=== PATIENT | female | born 1935 | race Caucasian/White ===

== ENCOUNTER 2018-12-24 06:08 | Emergency (ER) | payer MEDICARE, OTHER ==
[~2018-12-24] VITALS: Ht 165.1 cm; Wt 75.9 kg
[2018-12-24 06:39] LABS: BASO # 0.1 10^3/uL (0.0-0.2); BASO % 0.7 % (0.0-1.0); EOS # 0.3 10^3/uL (0.0-0.50); EOS % 3.9 % (0.0-3.0); HEMATOCRIT 37.7 % (36.0-47.0); HEMOGLOBIN 12.1 g/dl (12.0-15.5); LYMPH % 40.2 % (24.0-44.0); MEAN CORPUSCULAR HEMOGLOBIN 29.7 pg (27.0-33.0); MEAN CORPUSCULAR HGB CONC 32.1 g/dl (32.0-36.5); MEAN CORPUSCULAR VOLUME 92.6 fl (80.0-96.0); MONO # 0.8 10^3/uL (0.0-0.8); MONO % 10.5 % (0.0-5.0); NEUTROPHILS # 3.3 10^3/uL (1.8-7.7); NEUTROPHILS % 44.4 % (36.0-66.0); PLATELET COUNT, AUTOMATED 377 10^3/uL (150-450); RED BLOOD COUNT 4.07 10^6/uL (4.00-5.40); WHITE BLOOD COUNT 7.4 10^3/uL (4.0-10.0)
[2018-12-24 07:05] LABS: ALBUMIN 3.6 GM/DL (3.2-5.2); ALT/SGPT 16 U/L (12-78); BILIRUBIN,DIRECT 0.1 MG/DL (0.0-0.2); BILIRUBIN,TOTAL 0.3 MG/DL (0.2-1.0); BLOOD UREA NITROGEN 29 MG/DL (7-18); CALCIUM LEVEL 8.9 MG/DL (8.8-10.2); CARBON DIOXIDE LEVEL 23 MEQ/L (21-32); CHLORIDE LEVEL 109 MEQ/L (98-107); CK-MB VALUE MASS 1.6 NG/ML (<3.6); CPK CREATINE PHOSPHOKINASE 55 U/L (26-192); CREATININE FOR GFR 1.07 MG/DL (0.55-1.30); GLUCOSE, FASTING 101 MG/DL (70-100); LIPASE 380 U/L (73-393); MB/CK RELATIVE INDEX 2.91 (< OR =4); POTASSIUM SERUM 4.2 MEQ/L (3.5-5.1); SODIUM LEVEL 141 MEQ/L (136-145); TOTAL PROTEIN 7.6 GM/DL (6.4-8.2); TROPONIN I < 0.02 NG/ML (< 0.10)
[2018-12-24] MEDS ORDERED: LEVO100T5 PO (07:54)
[2018-12-24] MEDS ORDERED: OLME1TAB15 PO (07:54)
[2018-12-24] MEDS ORDERED: AMLO10TA5 PO (07:54)
[2018-12-24] MEDS ORDERED: GEMF600T5 PO (07:54)
[2018-12-24] MEDS ORDERED: hydroCHLOROthiazide 25 MG TAB PO ONE (08:00)
[2018-12-24] MEDS ORDERED: KETOROLAC 30 MG/ML VIAL (J1885) IV ONE (08:00)
[2018-12-24] MEDS ORDERED: OLMESARTAN MEDOXOMIL 20 MG TAB (BENICAR) PO ONE (08:00)
[2018-12-24] MEDS ORDERED: amLODIPine 10 MG TAB PO ONE (08:00)
[2018-12-24] MEDS: MORPHINE 2 MG/ML 1ML SYRINGE (J2270) IV PRN ×2 (08:44→09:48)
[2018-12-24] MEDS ORDERED: ONDANSETRON 4MG/2ML VIAL (J2405) IV ONE (08:45)
[2018-12-24 09:47] VITALS: BP 179/73
--- NOTE | 2018-12-24 10:12 | REP ---
Clinical: Right upper quadrant pain. Technique: Real time zelaya scale and color ultrasound examination using curved array transducer. Findings: The gallbladder is markedly distended measuring 11 cm in length and 5.3 cm diameter without wall thickening, pericholecystic fluid, or cholelithiasis. No definite biliary ductal dilatation is appreciated and the common bile duct is upper limits of normal at 8 mm diameter. Liver and visualized pancreas are normal in contour, size, echogenicity without focal hepatic or pancreatic lesions identified. The right kidney is normal in reniform shape without hydronephrosis and measures 9.5 x 4.4 x 4.4 cm. Images demonstrate a 2.2 x 1.8 x 1.6 cm soft tissue focus superior to the right kidney which is has been previously diagnosed as adenoma. No ascites. Impression: 1. Markedly distended gallbladder without further sonographic evidence to suggest acute cholecystitis, and prominent common bile duct. Findings are similar to prior CT dated 10/18/2008. 2. Right adrenal lesion consistent with adenoma and confirmed by CT dated 10/08/2008. Electronically Signed by Pedro Galarza MD 12/24/2018 10:03 A
[2018-12-24] MEDS: GASTROGRAFIN SOLUTION 30ML (Q9963) PO SCH ×2 (10:46→11:28)
[2018-12-24] MEDS ORDERED: ISOVUE-370 76% 100ML VIAL (Q9967) As Ordered ONE (12:05)
--- NOTE | 2018-12-24 12:39 | REP ---
Clinical: Right-sided abdominal pain. Technique: Axial contrast enhanced images from the lung bases to the pubic symphysis using oral (per protocol) and 100 ml Isovue 370 intravenous contrast material with coronal and sagittal re-formations. Comparison: 10/18/2008 Findings: Lung bases demonstrate chronic changes and bronchiectasis. Liver, pancreas, and left adrenal gland are normal. Spleen demonstrates parenchymal calcifications suggesting prior granulomas disease. Right adrenal gland includes 2.6 cm benign adenoma. Kidneys demonstrate age-related atrophic changes without perinephric stranding or hydronephrosis. The gallbladder is distended but without surrounding pericholecystic fluid to suggest acute cholecystitis. The enteric system demonstrates moderate fecal stasis without obstruction or acute inflammatory process. Normal terminal ileum and appendix identified in the right lower quadrant. Sigmoid diverticulosis noted without acute diverticulitis. Pelvis demonstrates normal bladder and prominent uterus with possible fundal fibroid. No ascites. No free air. No adenopathy. Abdominal aorta without aneurysm or dissection. Musculoskeletal structures demonstrate osteopenia and advanced degenerative changes. Impression: 1. No acute abdominopelvic pathology appreciated. Specifically, no ascites, focal inflammatory stranding, or adenopathy. 2. Distended gallbladder without obvious findings to suggest acute cholecystitis. 3. Diverticulosis. 4. Benign right adrenal adenoma. 5. Possible fundal fibroid to the uterus. Electronically Signed by Pedro Galarza MD 12/24/2018 12:30 P
[2018-12-24] MEDS ORDERED: TRAM-533 PO (14:21)
[2018-12-24 14:32] VITALS: BP 137/63
--- NOTE | 2018-12-25 10:27 | ECGEPIP ---
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
== END 2018-12-24 14:58 | disposition home or self-care (01) ==
LOC: M ED 06:08
DX: R10.11 Right upper quadrant pain (principal); K82.8 Other specified diseases of gallbladder; I10 Essential (primary) hypertension; E78.5 Hyperlipidemia, unspecified; M51.9 Unspecified thoracic, thoracolumbar and lumbosacral intervertebral disc disorder; K57.90 Diverticulosis of intestine, part unspecified, without perforation or abscess without bleeding; Z88.8 Allergy status to other drugs, medicaments and biological substances; Z79.899 Other long term (current) drug therapy
CPT/HCPCS: 74177; 76705; 80048; 80076; 81001; 82550; 82553; 83690; 84484; 85025; 87086; 93005; 93041; 96374; 96375; 96376; 99285; J1885; J2270; J2405; Q9963; Q9967

== ENCOUNTER → 2019-01-02 | Outpatient (CLI) | payer MEDICARE, OTHER ==
[~2019-01-02] MED LIST: AMLO10TA5 PO; ASPI81TA26 PO; FISH1000 PO; GEMF600T5 PO; LEVO100T5 PO; MULTCAP PO; OLME1TAB47 PO; TRAM-533 PO; TUMERIC PO; TYLE650T35 PO
--- NOTE | 2019-01-02 14:29 | REP ---
Hepatobiliary scan and gallbladder ejection fraction: History: Right upper quadrant pain Technique: 6.6 mCi of technetium-99m mebrofenin was injected and sequential anterior images are acquired. 65 minutes after the mebrofenin injection, the patient consumed 8 ounces Ensure and an additional 60 minutes of imaging was acquired. Regions of interest are plotted around the gallbladder. Findings: The initial hepatocellular parenchymal uptake phase is normal and homogeneous. Intra- and extra-hepatic bile ducts and duodenum are labeled by the 25 -minute image. The gallbladder is first labeled on the 30 -minute image. There is normal washout from the liver parenchyma into the gallbladder and small intestine on subsequent images. The gallbladder ejection fraction is 18 %. Values greater than 35 % are considered normal with this technique. Impression: Normal hepatobiliary scan with decreased gallbladder ejection fraction. Electronically Signed by Rustam Jaramillo MD 01/02/2019 02:21 P
== END ==
LOC: M RAD 07:00
PROVIDERS: ATTEND Nurse Practitioner Family
DX: R10.11 Right upper quadrant pain (principal)
CPT/HCPCS: 78227; A9537; J2805

== ENCOUNTER → 2019-04-13 | Outpatient (CLI) | payer MEDICARE, OTHER ==
[~2019-04-13] MED LIST changes: +OLME1TAB15 PO; -OLME1TAB47 PO
[2019-04-13 15:57] LABS: BASO # 0.1 10^3/uL (0.0-0.2); BASO % 0.6 % (0.0-1.0); EOS # 0.3 10^3/uL (0.0-0.5); EOS % 3.9 % (0.0-3.0); HEMATOCRIT 37.1 % (36.0-47.0); HEMOGLOBIN 11.9 g/dl (12.0-15.5); LYMPH # 3.4 10^3/uL (1.5-5.0); LYMPH % 40.5 % (24.0-44.0); MEAN CORPUSCULAR HGB CONC 32.1 g/dl (32.0-36.5); MEAN CORPUSCULAR VOLUME 93.5 fl (80.0-96.0); MONO # 0.8 10^3/uL (0.0-0.8); MONO % 9.7 % (0.0-5.0); NEUTROPHILS # 3.7 10^3/uL (1.5-8.5); NEUTROPHILS % 45.2 % (36.0-66.0); PLATELET COUNT, AUTOMATED 443 10^3/uL (150-450); RED BLOOD COUNT 3.97 10^6/uL (4.00-5.40); WHITE BLOOD COUNT 8.3 10^3/uL (4.0-10.0)
[2019-04-13 16:09] LABS: INR 1.27; PROTHROMBIN TIME 15.6 SECONDS (11.8-14.0)
[2019-04-13 16:32] LABS: ALBUMIN 3.6 GM/DL (3.2-5.2); BILIRUBIN,TOTAL 0.4 MG/DL (0.2-1.0); GLOMERULAR FILTRATION RATE 56.2 (>32); POTASSIUM SERUM 4.4 MEQ/L (3.5-5.1); THYROID STIMULATING HORMONE 1.33 uIU/ML (0.358-3.740); TOTAL PROTEIN 7.2 GM/DL (6.4-8.2)
--- NOTE | 2019-04-13 18:43 | ECGEPIP ---
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 No significant change from 12/24/18 Electronically Signed on 04-13-2019 18:42:52 EDT by Abdiel Marrero
== END ==
LOC: M LAB 15:13
PROVIDERS: ATTEND Nurse Practitioner Adult Health
DX: Z01.818 Encounter for other preprocedural examination (principal); I45.10 Unspecified right bundle-branch block; Z79.82 Long term (current) use of aspirin

== ENCOUNTER 2019-04-20 09:39 | Day surgery (SDC) | payer MEDICARE, OTHER ==
[~2019-04-20] VITALS: Ht 165.1 cm; Wt 68.0 kg
[~2019-04-20 09:39] MED LIST changes: +LR 1,000 ML IV ONE
[2019-04-20] MEDS ORDERED: fentaNYL 250 MCG/5 ML INJECTION (J3010) As Ordered ONE (10:00)
[2019-04-20] MEDS ORDERED: LIDOCAINE 2% INJ 100 MG/5 ML SDV (FOR ANES.) As Ordered ONE (10:00)
[2019-04-20] MEDS ORDERED: PROPOFOL 200 MG/20 ML VIAL As Ordered ONE (10:00)
[2019-04-20] MEDS ORDERED: ROCURONIUM BROMIDE 50 MG/5 ML VIAL As Ordered ONE (10:00)
[2019-04-20] MEDS ORDERED: MIDAZOLAM INJ 2 MG/2 ML VIAL (J2250) As Ordered ONE (10:01)
[2019-04-20] MEDS ORDERED: BUPIVACAINE/EPIN 0.25% 30 ML VIAL As Ordered ONE (10:27)
[2019-04-20] MEDS ORDERED: PHENYLephrine HCL 500 MCG/5 ML (100MCG/ML) SYRINGE (J2370) As Ordered ONE (11:17)
[2019-04-20] MEDS ORDERED: ePHEDrine SULFATE 25 MG/5 ML(5MG/ML) SYRINGE As Ordered ONE (11:17)
[2019-04-20] MEDS ORDERED: KETOROLAC 60 MG/2 ML VIAL (J1885) As Ordered ONE (11:28)
[2019-04-20] MEDS ORDERED: ONDANSETRON 4MG/2ML VIAL (J2405) As Ordered ONE (11:28)
[2019-04-20] MEDS ORDERED: dexameTHASONE 4 MG/ML 1ML VIAL (J1100) As Ordered ONE (11:28)
[2019-04-20] MEDS ORDERED: ACETAMINOPHEN 1000MG 100ML IV BTL (OFIRMEV) (J0131 PER 10MG) As Ordered ONE (11:29)
[2019-04-20] MEDS ORDERED: SUGAMMADEX SODIUM 500 MG/5 ML VIAL (BRIDION) As Ordered ONE (11:32)
--- NOTE | 2019-04-20 12:19 | RO ---
DATE OF PROCEDURE: 04/20/2019 PREOPERATIVE DIAGNOSIS: Biliary dyskinesia. POSTOPERATIVE DIAGNOSIS: Biliary dyskinesia. PROCEDURE: Laparoscopic cholecystectomy. SURGEON: Dr. Paulino Solis COPY MESSENGER: None. ANESTHESIA: General. ESTIMATED BLOOD LOSS: 5. COMPLICATIONS: None. INDICATIONS FOR PROCEDURE: The patient is an 83-year-old female who presents with right upper quadrant pain and found have biliary dyskinesia. Recommendation was to proceed with laparoscopic repair. Risks and benefits of the procedure not limited to, but including bleeding, infection, hernia formation, damage to surrounding structures, need for further surgery were discussed in detail with the patient. Informed consent was obtained and the procedure was planned. DESCRIPTION OF PROCEDURE: The patient was brought back to operating room three and after sufficient sedation the abdomen was sterilely prepped and draped. Next a time out was done to confirm proper patient and proper procedure. Following that, a 10 mm incision was made in the left upper quadrant. Veress needle was inserted and the abdomen was insufflated to 15 mmHg. Next, a 5 mm supraumbilical incision made and a 5 mm OptiVu port was used to gain access to the abdomen. Once the abdomen was entered, the Veress needle site was examined. There were no signs of any injury. The Veress needle was then removed and replaced with a 10 mm port. Two more 5 mm ports were placed in the right upper quadrant. The fundus of the gallbladder was elevated up towards the right shoulder. The cystic duct and cystic artery were carefully dissected free using a combination of blunt and sharp dissection. Once they were both clearly identified, they were both doubly clipped and cut. The gallbladder was then taken from the gallbladder fossa using electrocautery. The gallbladder was then placed inside of a 10 mm EndoCatch bag and brought out through the left sided port site. Next, the fascia at that port site was closed using a Sridhar-Nirmala needle and #0 Vicryl suture. Once that was completed, the abdomen was desufflated and the ports were removed. Skin incisions were closed #4-0 Vicryl subcuticular sutures. The abdomen was cleaned and dried. Steri-Strips, 4x4 and tape were applied, thus ending the procedure.
[2019-04-20] MEDS ORDERED: ONDANSETRON 4MG/2ML VIAL (J2405) IV PRN (12:30)
[2019-04-20] MEDS ORDERED: PERCOCET 5MG/325MG TAB PO PRN (12:30)
[2019-04-20] MEDS ORDERED: fentaNYL 100 MCG/2 ML INJECTION (J3010) IV PRN (12:30)
[2019-04-20] MEDS ORDERED: KETOROLAC 30 MG/ML VIAL (J1885) IV PRN (12:30)
[2019-04-20] MEDS ORDERED: METOCLOPRAMIDE INJ 10MG/2ML VIAL (J2765) IV PRN (12:30)
[2019-04-20] MEDS ORDERED: LR 1,000 ML IV SCH (12:30)
[2019-04-20] MEDS ORDERED: MEPERIDINE INJ 25 MG/ML VIAL (J2175) IV PRN (12:30)
[2019-04-20] MEDS ORDERED: NORCO, ANEXSIA 5/325MG TABLET (HYDROcodone/ACETAMINOPHEN) PO PRN (13:00)
[2019-04-20 15:15] VITALS: BP 121/58
== END 2019-04-20 15:30 | disposition home or self-care (01) ==
LOC: M SDC 09:39
PROVIDERS: ATTEND Surgery
DX: K81.1 Chronic cholecystitis (principal); I10 Essential (primary) hypertension; E78.5 Hyperlipidemia, unspecified; E03.9 Hypothyroidism, unspecified; Z79.82 Long term (current) use of aspirin; Z79.899 Other long term (current) drug therapy; Z88.8 Allergy status to other drugs, medicaments and biological substances
CPT/HCPCS: 47562; 88304; J0131; J1100; J1885; J2250; J2370; J2405; J3010

== ENCOUNTER 2020-08-02 07:22 | Emergency (ER) | payer MEDICARE, OTHER ==
[~2020-08-02] VITALS: Ht 162.6 cm; Wt 77.7 kg
[~2020-08-02 07:22] MED LIST changes: +ACET650T61 PO; -AMLO10TA5 PO; +AMLO1TAB25 PO; -LR 1,000 ML IV ONE; -OLME1TAB15 PO; +OLME1TAB53 PO; -TYLE650T35 PO
--- NOTE | 2020-08-02 08:17 | REP ---
INDICATION: right lower chest pain. COMPARISON: No comparison chest x-ray.. TECHNIQUE: Portable semi-erect AP radiograph of the chest. FINDINGS: Monitoring electrodes are seen. Mildly prominent heart is noted. Advanced arthropathy in the shoulders. There are degenerative changes in the thoracic spine and aorta. The lung eng are symmetrically aerated and free of infiltrate. There is minimal linear fibrosis in the bases bilaterally. Pulmonary vasculature is not increased. There is a granulomatous calcification projecting at the left apex. IMPRESSION: Borderline heart size. Mild bibasilar fibrosis. Otherwise no active disease. <Electronically signed by Norberto Jaramillo > 08/02/20 [id number]
[2020-08-02 08:37] LABS: BASO # 0.1 10^3/uL (0.0-0.2); BASO % 0.7 % (0.0-1.0); EOS # 0.2 10^3/uL (0.0-0.5); HEMATOCRIT 38.8 % (36.0-47.0); HEMOGLOBIN 12.4 g/dl (12.0-15.5); LYMPH # 3.2 10^3/uL (1.5-5.0); LYMPH % 38.3 % (24.0-44.0); MEAN CORPUSCULAR HEMOGLOBIN 29.5 pg (27.0-33.0); MEAN CORPUSCULAR VOLUME 92.4 fl (80.0-96.0); MONO # 0.8 10^3/uL (0.0-0.8); MONO % 9.3 % (0.0-5.0); NEUTROPHILS # 4.2 10^3/uL (1.5-8.5); NEUTROPHILS % 49.5 % (36.0-66.0); PLATELET COUNT, AUTOMATED 440 10^3/uL (150-450); WHITE BLOOD COUNT 8.4 10^3/uL (4.0-10.0)
[2020-08-02] MEDS ORDERED: DICYCLOMINE 10 MG CAP PO ONE (09:00)
--- NOTE | 2020-08-02 09:00 | ECGEPIP ---
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
[2020-08-02 09:06] LABS: ALBUMIN 3.8 GM/DL (3.2-5.2); ALT/SGPT 15 U/L (12-78); BILIRUBIN,DIRECT 0.2 MG/DL (0.0-0.2); BILIRUBIN,TOTAL 0.4 MG/DL (0.2-1.0); BLOOD UREA NITROGEN 31 MG/DL (7-18); CALCIUM LEVEL 9.7 MG/DL (8.8-10.2); CARBON DIOXIDE LEVEL 22 MEQ/L (21-32); CHLORIDE LEVEL 109 MEQ/L (98-107); CK-MB VALUE MASS 5.1 NG/ML (<3.6); CPK CREATINE PHOSPHOKINASE 219 U/L (26-192); CREATININE FOR GFR 1.01 MG/DL (0.55-1.30); GLOMERULAR FILTRATION RATE 55.3 (>32); GLUCOSE, FASTING 102 MG/DL (70-100); LIPASE 239 U/L (73-393); MB/CK RELATIVE INDEX 2.33 (< OR =4); POTASSIUM SERUM 3.7 MEQ/L (3.5-5.1); SODIUM LEVEL 141 MEQ/L (136-145); TOTAL PROTEIN 7.3 GM/DL (6.4-8.2); TROPONIN I < 0.02 NG/ML (< 0.10)
[2020-08-02] MEDS ORDERED: ISOVUE-370 76% 100ML VIAL As Ordered ONE (09:19)
--- NOTE | 2020-08-02 09:55 | REP ---
INDICATION: pleuritic chest pain r/o right PE COMPARISON: 09/29/2008 TECHNIQUE: Axial contrast enhanced images from the thoracic inlet to the upper abdomen using pulmonary embolus technique with multiplanar re-formations. 75 ml Isovue 370 intravenous contrast material administered without complication. This CT examination was performed using the following dose reduction techniques: Automated exposure control, adjustment of mA and/or kv according to the patient's size, and use of iterative reconstruction technique. FINDINGS: Satisfactory enhancement of the pulmonary vasculature is achieved and no filling defects are identified to suggest pulmonary embolus. Further evaluation of the mediastinum demonstrates atherosclerotic changes to the thoracic aorta and coronary arteries without aortic aneurysm/dissection or pericardial effusion. The bilateral lung eng demonstrate chronic appearing changes along with patchy ground-glass opacities and mild bibasilar atelectasis/early infiltrate (left greater than right). Tracheobronchial tree is patent. No effusion. No pneumothorax. No significant adenopathy. Musculoskeletal structures demonstrate age-related degenerative changes. IMPRESSION: 1. No evidence for pulmonary embolus. 2. Mild ground-glass opacities and minimal basilar atelectasis/early left lower lobe airspace disease. <Electronically signed by Pedro Galarza > 08/02/20 [id number]
[2020-08-02 12:00] LABS: CK-MB VALUE MASS 4.6 NG/ML (<3.6); CPK CREATINE PHOSPHOKINASE 177 U/L (26-192); TROPONIN I < 0.02 NG/ML (< 0.10)
[2020-08-02 12:05] VITALS: BP 112/56
--- NOTE | 2020-08-02 20:11 | ECGEPIP ---
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
== END 2020-08-02 12:23 | disposition home or self-care (01) ==
LOC: M ED 07:22
DX: R07.89 Other chest pain (principal); I44.0 Atrioventricular block, first degree; I45.19 Other right bundle-branch block; I10 Essential (primary) hypertension; E78.5 Hyperlipidemia, unspecified; E07.9 Disorder of thyroid, unspecified; M19.90 Unspecified osteoarthritis, unspecified site; Z82.49 Family history of ischemic heart disease and other diseases of the circulatory system; Z79.899 Other long term (current) drug therapy; Z79.890 Hormone replacement therapy; Z79.82 Long term (current) use of aspirin; Z88.8 Allergy status to other drugs, medicaments and biological substances
CPT/HCPCS: 36415; 71045; 71275; 80048; 80076; 82550; 82553; 83690; 84484; 85025; 93005; 99284; Q9967

== ENCOUNTER 2020-08-08 10:42 | Emergency (ER) | payer MEDICARE, OTHER ==
[~2020-08-08] VITALS: Ht 162.6 cm; Wt 76.4 kg
--- OUTSIDE RECORDS SUMMARY | 2020-08-08 11:12 | CCD ---
Author Author [facility] Organization [facility] Address Unknown Phone Unavailable Care Team Providers Care Parts And Service Manager Name Role Phone Mena Madsen MD Unavailable Unavailable Mena Madsen MD Unavailable Unavailable Mena Madsen MD Unavailable Unavailable Mena Madsen MD Unavailable Unavailable Mena Madsen MD Unavailable Unavailable Mena Madsen MD Unavailable Unavailable Mena Madsen MD Unavailable Unavailable Mena Madsen MD Unavailable Unavailable Mena Madsen MD Unavailable Unavailable Mena Madsen MD Unavailable Unavailable Mena Madsen MD Unavailable Unavailable Mena Madsen MD Unavailable Unavailable Mena Madsen MD Unavailable Unavailable Mena Madsen MD Unavailable Unavailable Mena Madsen MD Unavailable Unavailable Mena Madsen MD Unavailable Unavailable Mena Madsen MD Unavailable Unavailable Mena Madsen MD Unavailable Unavailable Mena Madsen MD Unavailable Unavailable Mena Madsen MD Unavailable Unavailable Mena Madsen MD Unavailable Unavailable Mena Madsen MD Unavailable Unavailable Mena Madsen MD Unavailable Unavailable Mena Madsen MD Unavailable Unavailable Mena Madsen MD Unavailable Unavailable Mena Madsen MD Unavailable Unavailable Mena Madsen MD Unavailable Unavailable Mena Madsen MD Unavailable Unavailable Mena Madsen MD Unavailable Unavailable Mena Madsen MD Unavailable Unavailable Mena Madsen MD Unavailable Unavailable Mena Madsen MD Unavailable Unavailable Mena Madsen MD Unavailable Unavailable Mena Madsen MD Unavailable Unavailable Mena Madsen MD Unavailable Unavailable Mena Madsen MD Unavailable Unavailable Mena Madsen MD Unavailable Unavailable Mena Madsen MD Unavailable Unavailable Mena Madsen MD Unavailable Unavailable Mena Madsen MD Unavailable Unavailable Mena Madsen MD Unavailable Unavailable Mena Madsen MD Unavailable Unavailable Mena Madsen MD Unavailable Unavailable Mena Madsen MD Unavailable Unavailable Mena Madsen MD Unavailable Unavailable Mena Madsen MD Unavailable Unavailable Mena Madsen MD Unavailable Unavailable Mena Madsen MD Unavailable Unavailable Mena Madsen MD Unavailable Unavailable Mena Madsen MD Unavailable Unavailable Mena Madsen MD Unavailable Unavailable Mena Madsen MD Unavailable Unavailable Mena Madsen MD Unavailable Unavailable Mena Madsen MD Unavailable Unavailable Mena Madsen MD Unavailable Unavailable Mena Madsen MD Unavailable Unavailable Mena Madsen MD Unavailable Unavailable Mena Madsen MD Unavailable Unavailable Mena Madsen MD Unavailable Unavailable Mena Madsen MD Unavailable Unavailable Mena Madsen MD Unavailable Unavailable Mena Madsen MD Unavailable Unavailable Mena Madsen MD Unavailable Unavailable Mena Madsen MD Unavailable Unavailable Mena Madsen MD Unavailable Unavailable Mena Madsen MD Unavailable Unavailable Mena Madsen MD Unavailable Unavailable Mena Madsen MD Unavailable Unavailable Mena Madsen MD Unavailable Unavailable Mena Madsen MD Unavailable Unavailable Mena Madsen MD Unavailable Unavailable Mena Madsen MD Unavailable Unavailable Mena Madsen MD Unavailable Unavailable Mena Madsen MD Unavailable Unavailable Mena Madsen MD Unavailable Unavailable Mena Madsen MD Unavailable Unavailable Mena Madsen MD Unavailable Unavailable Mena Madsen MD Unavailable Unavailable Mena Madsen MD Unavailable Unavailable Mena Madsen MD Unavailable Unavailable Mena Madsen MD Unavailable Unavailable Mena Madsen MD Unavailable Unavailable Mena Madsen MD Unavailable Unavailable Mena Madsen MD Unavailable Unavailable Mena Madsen MD Unavailable Unavailable Mena Madsen MD Unavailable Unavailable Mena Madsen MD Unavailable Unavailable Mena Madsen MD Unavailable Unavailable Mena Madsen MD Unavailable Unavailable Lesly Hernández SAP FICO ARCHITECT SAP FICO ARCHITECT Unavailable Unavailable Mena Madsen MD Unavailable Unavailable Mena Madsen MD Unavailable Unavailable Mena Madsen MD Unavailable Unavailable Mena Madsen MD Unavailable Unavailable Mena Madsen MD Unavailable Unavailable Mena Madsen MD Unavailable Unavailable Mena Madsen MD Unavailable Unavailable Mena Madsen MD Unavailable Unavailable Mena Madsen MD Unavailable Unavailable Mena Madsen MD Unavailable Unavailable Mena Madsen MD Unavailable Unavailable Mena Madsen MD Unavailable Unavailable Mena Madsen MD Unavailable Unavailable Mena Madsen MD Unavailable Unavailable Mena Madsen MD Unavailable Unavailable Mena Madsen MD Unavailable Unavailable Mena Madsen MD Unavailable Unavailable Mena Madsen MD Unavailable Unavailable Mena Madsen MD Unavailable Unavailable Mena Madsen MD Unavailable Unavailable Mena Madsen MD Unavailable Unavailable Mena Madsen MD Unavailable Unavailable Mena Madsen MD Unavailable Unavailable Mena Madsen MD Unavailable Unavailable Mena Madsen MD Unavailable Unavailable Mena Madsen MD Unavailable Unavailable Mena Madsen MD Unavailable Unavailable Mena Madsen MD Unavailable Unavailable Mena Madsen MD Unavailable Unavailable Mena Madsen MD Unavailable Unavailable Mena Madsen MD Unavailable Unavailable Mena Madsen MD Unavailable Unavailable Mena Madsen MD Unavailable Unavailable Mena Madsen MD Unavailable Unavailable Mena Madsen MD Unavailable Unavailable Mena Madsen MD Unavailable Unavailable Mena Madsen MD Unavailable Unavailable Mena Madsen MD Unavailable Unavailable Mena Madsen MD Unavailable Unavailable Mena Madsen MD Unavailable Unavailable Mena Madsen MD Unavailable Unavailable Mena Madsen MD Unavailable Unavailable Mena Madsen MD Unavailable Unavailable Mena Madsen MD Unavailable Unavailable Mena Madsen MD Unavailable Unavailable Mena Madsen MD Unavailable Unavailable Mena Madsen MD Unavailable Unavailable Mena Madsen MD Unavailable Unavailable Mena Madsen MD Unavailable Unavailable Mena Madsen MD Unavailable Unavailable Mena Madsen MD Unavailable Unavailable Mena Madsen MD Unavailable Unavailable Mena Madsen MD Unavailable Unavailable Mena Madsen MD Unavailable Unavailable Mena Madsen MD Unavailable Unavailable Mena Madsen MD Unavailable Unavailable Mena Madsen MD Unavailable Unavailable Mena Madsen MD Unavailable Unavailable Mena Madsen MD Unavailable Unavailable Mena Madsen MD Unavailable Unavailable Mena Madsen MD Unavailable Unavailable Mena Madsen MD Unavailable Unavailable Mena Madsen MD Unavailable Unavailable Mena Madsen MD Unavailable Unavailable Mena Madsen MD Unavailable Unavailable Mena Madsen MD Unavailable Unavailable Mena Madsen MD Unavailable Unavailable Mena Madsen MD Unavailable Unavailable Mena Madsen MD Unavailable Unavailable Mena Madsen MD Unavailable Unavailable Mena Madsen MD Unavailable Unavailable Mena Madsen MD Unavailable Unavailable Mena Madsen MD Unavailable Unavailable Mena Madsen MD Unavailable Unavailable Mena Madsen MD Unavailable Unavailable Mena Madsen MD Unavailable Unavailable Mena Madsen MD Unavailable Unavailable Mena Madsen MD Unavailable Unavailable Mena Madsen MD Unavailable Unavailable Mena Madsen MD Unavailable Unavailable Mena Madsen MD Unavailable Unavailable Mena Madsen MD Unavailable Unavailable Mena Madsen MD Unavailable Unavailable Mena Madsen MD Unavailable Unavailable Mena Madsen MD Unavailable Unavailable Mena Madsen MD Unavailable Unavailable Mena Madsen MD Unavailable Unavailable Mena Madsen MD Unavailable Unavailable Mena Madsen MD Unavailable Unavailable Hernández, F Lesly SAP FICO ARCHITECT-BC Unavailable Unavailable Hernández, F Lesly SAP FICO ARCHITECT-BC Unavailable Unavailable Hernández, F Lesly SAP FICO ARCHITECT-BC Unavailable Unavailable Hernández, F Lesly SAP FICO ARCHITECT-BC Unavailable Unavailable Hernández, F Lesly SAP FICO ARCHITECT-BC Unavailable Unavailable Hernández, F Lesly SAP FICO ARCHITECT-BC Unavailable Unavailable Hernández, F Lesly SAP FICO ARCHITECT-BC Unavailable Unavailable Hernández, F Lesly SAP FICO ARCHITECT-BC Unavailable Unavailable Hernández, F Lesly SAP FICO ARCHITECT-BC Unavailable Unavailable Hernández, F Lesly SAP FICO ARCHITECT-BC Unavailable Unavailable Hernández, F Lesly SAP FICO ARCHITECT-BC Unavailable Unavailable Hernández, F Lesly SAP FICO ARCHITECT-BC Unavailable Unavailable Hernández, F Lesly SAP FICO ARCHITECT-BC Unavailable Unavailable Hernández, F Lesly SAP FICO ARCHITECT-BC Unavailable Unavailable Hernández, F Lesly SAP FICO ARCHITECT-BC Unavailable Unavailable Hernández, F Lesly SAP FICO ARCHITECT-BC Unavailable Unavailable Hernández, F Lesly SAP FICO ARCHITECT-BC Unavailable Unavailable Hernández, F Lesly SAP FICO ARCHITECT-BC Unavailable Unavailable Hernández, F Lesly SAP FICO ARCHITECT-BC Unavailable Unavailable Hernández, F Lesly SAP FICO ARCHITECT-BC Unavailable Unavailable Hernández, F Lesly SAP FICO ARCHITECT-BC Unavailable Unavailable Hernández, F Lesly SAP FICO ARCHITECT-BC Unavailable Unavailable Re-disclosure Warning The records that you are about to access may contain information from federally-assisted alcohol or drug abuse programs. If such information is present, then the following federally mandated warning applies: This information has been disclosed to you from records protected by federal confidentiality rules (42 CFR part 2). The federal rules prohibit you from making any further disclosure of this information unless further disclosure is expressly permitted by the written consent of the person to whom it pertains or as otherwise permitted by 42 CFR part 2. A general authorization for the release of medical or other information is NOT sufficient for this purpose. The Federal rules restrict any use of the information to criminally investigate or prosecute any alcohol or drug abuse patient.The records that you are about to access may contain highly sensitive health information, the redisclosure of which is protected by Article 27-F of the [facility] Public Health law. If you continue you may have access to information: Regarding HIV / AIDS; Provided by facilities licensed or operated by the [facility] Office of Mental Health; or Provided by the [facility] Office for People With Developmental Disabilities. If such information is present, then the following [facility] mandated warning applies: This information has been disclosed to you from confidential records which are protected by state law. State law prohibits you from making any further disclosure of this information without the specific written consent of the person to whom it pertains, or as otherwise permitted by law. Any unauthorized further disclosure in violation of state law may result in a fine or long term sentence or both. A general authorization for the release of medical or other information is NOT sufficient authorization for further disc losure. Encounters Encounter Providers Location Date Indications Data Source(s ) Victorino Madsen MD: [address] [place] [phone], Ph. Attender: Victorino Madsen MD [facility] Medical 05/24/2020 12:00:00 AM EST [facility] ([facility]) Outpatient Attender: Victorino Madsen MD 12/07/2019 04:50:00 PM EDT [facility] Outpatient Attender: Victorino Madsen MD 11/23/2019 12:08:01 PM EDT [facility] Outpatient Attender: Victorino Madsen MD 11/23/2019 12:07:01 PM EDT [facility] Outpatient Attender: Victorino Madsen MD 11/23/2019 11:24:02 AM EDT [facility] Outpatient Attender: Victorino Madsen MD 11/23/2019 11:24:01 AM EDT [facility] Outpatient Attender: Victorino Madsen MD 11/23/2019 10:43:01 AM EDT [facility] Outpatient Attender: JEOVANNY UP 11/23/2019 10:16:01 AM EDT [facility] Outpatient Attender: JEOVANNY UP 11/23/2019 10:14:00 AM EDT [facility] Outpatient Attender: JEOVANNY PERALES 11/19/2019 09:01:03 PM EDT [facility] Outpatient Attender: JEOVANNY UP 11/19/2019 07:25:00 AM EDT [facility] Outpatient Attender: JEOVANNY PERALES 11/19/2019 07:23:00 AM EDT [facility] Outpatient Attender: Lesly NICK 11/11/2019 09: 14:59 PM EDT [facility] Outpatient Attender: JEOVANNY Hernández SAP FICO ARCHITECT FP 10/23/2019 09:01:01 PM EDT [facility] Outpatient Attender: JEOVANNY Hernández JEOVANNY FP 07/28/2019 07:51:00 AM EST [facility] Outpatient Attender: JEOVANNY SANDOVALP 06/12/2019 08:01:36 PM EST [facility] Medications Medication Brand Name Start Date Product Form Dose Route Admi nistrative Instructions Pharmacy Instructions Status Indications Reaction Description Data Source(s) 10 mg 05/07/2020 12:00:00 AM EST tablet 30 TAKE ONE TABLET BY MOUTH EVERY DAY TAKE ONE TABLET BY MOUTH EVERY DAY SOLD: 05/10/2020 [facility] 40-25 mg 05/07/2020 12:00:00 AM EST tablet 30 TAKE ONE TABLET BY MOUTH EVERY DAY TAKE ONE TABLET BY MOUTH EVERY DAY SOLD: 05/10/2020 [facility] 40-25 mg 05/07/2020 12:00:00 AM EST tablet 30 TAKE ONE TABLET BY MOUTH EVERY DAY TAKE ONE TABLET BY MOUTH EVERY DAY SOLD: 06/05/2020 [facility] 600 mg 05/07/2020 12:00:00 AM EST tablet 30 TAKE ONE TABLET BY MOUTH TWICE A DAY TAKE ONE TABLET BY MOUTH TWICE A DAY SOLD: 07/09/2020 [facility] 600 mg 05/07/2020 12:00:00 AM EST tablet 30 TAKE ONE TABLET BY MOUTH TWICE A DAY TAKE ONE TABLET BY MOUTH TWICE A DAY SOLD: 05/10/2020 [facility] 100 mcg 05/07/2020 12:00:00 AM EST tablet 30 TAKE ONE TABLET BY MOUTH EVERY DAY TAKE ONE TABLET BY MOUTH EVERY DAY SOLD: 07/09/2020 [facility] 40-25 mg 05/07/2020 12:00:00 AM EST tablet 30 TAKE ONE TABLET BY MOUTH EVERY DAY TAKE ONE TABLET BY MOUTH EVERY DAY SOLD: 07/10/2020 [facility] 600 mg 05/07/2020 12:00:00 AM EST tablet 30 TAKE ONE TABLET BY MOUTH TWICE A DAY TAKE ONE TABLET BY MOUTH TWICE A DAY SOLD: 06/05/2020 [facility] 600 mg 05/07/2020 12:00:00 AM EST tablet 30 TAKE ONE TABLET BY MOUTH TWICE A DAY TAKE ONE TABLET BY MOUTH TWICE A DAY SOLD: 07/25/2020 [facility] 100 mcg 05/07/2020 12:00:00 AM EST tablet 30 TAKE ONE TABLET BY MOUTH EVERY DAY TAKE ONE TABLET BY MOUTH EVERY DAY SOLD: 06/05/2020 [facility] 10 mg 05/07/2020 12:00:00 AM EST tablet 30 TAKE ONE TABLET BY MOUTH EVERY DAY TAKE ONE TABLET BY MOUTH EVERY DAY SOLD: 07/09/2020 [facility] 10 mg 05/07/2020 12:00:00 AM EST tablet 30 TAKE ONE TABLET BY MOUTH EVERY DAY TAKE ONE TABLET BY MOUTH EVERY DAY SOLD: 06/05/2020 [facility] 600 mg 05/07/2020 12:00:00 AM EST tablet 30 TAKE ONE TABLET BY MOUTH TWICE A DAY TAKE ONE TABLET BY MOUTH TWICE A DAY SOLD: 06/22/2020 [facility] 100 mcg 05/07/2020 12:00:00 AM EST tablet 30 TAKE ONE TABLET BY MOUTH EVERY DAY TAKE ONE TABLET BY MOUTH EVERY DAY SOLD: 05/10/2020 [facility] 100 mcg 11/12/2019 12:00:00 AM EDT tablet 30 TAKE ONE TABLET BY MOUTH EVERY DAY TAKE ONE TABLET BY MOUTH EVERY DAY SOLD: 01/12/2020 [facility] 600 mg 11/12/2019 12:00:00 AM EDT tablet 60 TAKE ONE TABLET BY MOUTH TWICE A DAY TAKE ONE TABLET BY MOUTH TWICE A DAY SOLD: 04/12/2020 [facility] 100 mcg 11/12/2019 12:00:00 AM EDT tablet 30 TAKE ONE TABLET BY MOUTH EVERY DAY TAKE ONE TABLET BY MOUTH EVERY DAY SOLD: 11/13/2019 [facility] 10 mg 11/12/2019 12:00:00 AM EDT tablet 30 TAKE ONE TABLET BY MOUTH EVERY DAY TAKE ONE TABLET BY MOUTH EVERY DAY SOLD: 04/12/2020 [facility] 100 mcg 11/12/2019 12:00:00 AM EDT tablet 30 TAKE ONE TABLET BY MOUTH EVERY DAY TAKE ONE TABLET BY MOUTH EVERY DAY SOLD: 12/13/2019 [facility] 100 mcg 11/12/2019 12:00:00 AM EDT tablet 30 TAKE ONE TABLET BY MOUTH EVERY DAY TAKE ONE TABLET BY MOUTH EVERY DAY SOLD: 03/12/2020 [facility] 100 mcg 11/12/2019 12:00:00 AM EDT tablet 30 TAKE ONE TABLET BY MOUTH EVERY DAY TAKE ONE TABLET BY MOUTH EVERY DAY SOLD: 02/11/2020 [facility] 600 mg 11/12/2019 12:00:00 AM EDT tablet 60 TAKE ONE TABLET BY MOUTH TWICE A DAY TAKE ONE TABLET BY MOUTH TWICE A DAY SOLD: 02/11/2020 [facility] 600 mg 11/12/2019 12:00:00 AM EDT tablet 60 TAKE ONE TABLET BY MOUTH TWICE A DAY TAKE ONE TABLET BY MOUTH TWICE A DAY SOLD: 03/12/2020 [facility] 600 mg 11/12/2019 12:00:00 AM EDT tablet 60 TAKE ONE TABLET BY MOUTH TWICE A DAY TAKE ONE TABLET BY MOUTH TWICE A DAY SOLD: 11/13/2019 [facility] 40-25 mg 11/12/2019 12:00:00 AM EDT tablet 30 TAKE ONE TABLET BY MOUTH EVERY DAY TAKE ONE TABLET BY MOUTH EVERY DAY SOLD: 03/12/2020 [facility] 40-25 mg 11/12/2019 12:00:00 AM EDT tablet 30 TAKE ONE TABLET BY MOUTH EVERY DAY TAKE ONE TABLET BY MOUTH EVERY DAY SOLD: 01/12/2020 [facility] 600 mg 11/12/2019 12:00:00 AM EDT tablet 60 TAKE ONE TABLET BY MOUTH TWICE A DAY TAKE ONE TABLET BY MOUTH TWICE A DAY SOLD: 12/13/2019 [facility] 10 mg 11/12/2019 12:00:00 AM EDT tablet 30 TAKE ONE TABLET BY MOUTH EVERY DAY TAKE ONE TABLET BY MOUTH EVERY DAY SOLD: 12/13/2019 [facility] 40-25 mg 11/12/2019 12:00:00 AM EDT tablet 30 TAKE ONE TABLET BY MOUTH EVERY DAY TAKE ONE TABLET BY MOUTH EVERY DAY SOLD: 11/13/2019 [facility] 40-25 mg 11/12/2019 12:00:00 AM EDT tablet 25 TAKE ONE TABLET BY MOUTH EVERY DAY TAKE ONE TABLET BY MOUTH EVERY DAY SOLD: 12/15/2019 [facility] 10 mg 11/12/2019 12:00:00 AM EDT tablet 30 TAKE ONE TABLET BY MOUTH EVERY DAY TAKE ONE TABLET BY MOUTH EVERY DAY SOLD: 11/13/2019 [facility] 10 mg 11/12/2019 12:00:00 AM EDT tablet 30 TAKE ONE TABLET BY MOUTH EVERY DAY TAKE ONE TABLET BY MOUTH EVERY DAY SOLD: 03/12/2020 [facility] 600 mg 11/12/2019 12:00:00 AM EDT tablet 60 TAKE ONE TABLET BY MOUTH TWICE A DAY TAKE ONE TABLET BY MOUTH TWICE A DAY SOLD: 01/12/2020 [facility] 10 mg 11/12/2019 12:00:00 AM EDT tablet 30 TAKE ONE TABLET BY MOUTH EVERY DAY TAKE ONE TABLET BY MOUTH EVERY DAY SOLD: 02/11/2020 [facility] 40-25 mg 11/12/2019 12:00:00 AM EDT tablet 30 TAKE ONE TABLET BY MOUTH EVERY DAY TAKE ONE TABLET BY MOUTH EVERY DAY SOLD: 02/11/2020 [facility] 10 mg 11/12/2019 12:00:00 AM EDT tablet 30 TAKE ONE TABLET BY MOUTH EVERY DAY TAKE ONE TABLET BY MOUTH EVERY DAY SOLD: 01/12/2020 [facility] 40-25 mg 11/12/2019 12:00:00 AM EDT tablet 30 TAKE ONE TABLET BY MOUTH EVERY DAY TAKE ONE TABLET BY MOUTH EVERY DAY SOLD: 04/12/2020 [facility] 100 mcg 11/12/2019 12:00:00 AM EDT tablet 30 TAKE ONE TABLET BY MOUTH EVERY DAY TAKE ONE TABLET BY MOUTH EVERY DAY SOLD: 04/12/2020 [facility] 10 mg 05/13/2019 12:00:00 AM EST tablet 30 TAKE ONE TABLET BY MOUTH EVERY DAY TAKE ONE TABLET BY MOUTH EVERY DAY SOLD: 07/14/2019 [facility] 40-25 mg 05/13/2019 12:00:00 AM EST tablet 30 TAKE ONE TABLET BY MOUTH EVERY DAY TAKE ONE TABLET BY MOUTH EVERY DAY SOLD: 07/14/2019 [facility] 10 mg 05/13/2019 12:00:00 AM EST tablet 30 TAKE ONE TABLET BY MOUTH EVERY DAY TAKE ONE TABLET BY MOUTH EVERY DAY SOLD: 09/12/2019 [facility] 40-25 mg 05/13/2019 12:00:00 AM EST tablet 30 TAKE ONE TABLET BY MOUTH EVERY DAY TAKE ONE TABLET BY MOUTH EVERY DAY SOLD: 08/14/2019 [facility] Gemfibrozil 600 MG Oral Tablet GEMFIBROZIL 05/13/2019 12:00:00 AM EST tablet 60 TAKE ONE TABLET BY MOUTH TWICE A DAY TAKE ONE TABLET BY MOUT H TWICE A DAY SOLD: 09/12/2019 [facility] 10 mg 05/13/2019 12:00:00 AM EST tablet 30 TAKE ONE TABLET BY MOUTH EVERY DAY TAKE ONE TABLET BY MOUTH EVERY DAY SOLD: 08/14/2019 [facility] 600 mg 05/13/2019 12:00:00 AM EST tablet 60 TAKE ONE TABLET BY MOUTH TWICE A DAY TAKE ONE TABLET BY MOUTH TWICE A DAY SOLD: 07/14/2019 [facility] 600 mg 05/13/2019 12:00:00 AM EST tablet 60 TAKE ONE TABLET BY MOUTH TWICE A DAY TAKE ONE TABLET BY MOUTH TWICE A DAY SOLD: 06/14/2019 [facility] 10 mg 05/13/2019 12:00:00 AM EST tablet 30 TAKE ONE TABLET BY MOUTH EVERY DAY TAKE ONE TABLET BY MOUTH EVERY DAY SOLD: 06/14/2019 [facility] 100 mcg 05/13/2019 12:00:00 AM EST tablet 30 TAKE ONE TABLET BY MOUTH EVERY DAY TAKE ONE TABLET BY MOUTH EVERY DAY SOLD: 10/13/2019 [facility] 100 mcg 05/13/2019 12:00:00 AM EST tablet 30 TAKE ONE TABLET BY MOUTH EVERY DAY TAKE ONE TABLET BY MOUTH EVERY DAY SOLD: 09/12/2019 [facility] 600 mg 05/13/2019 12:00:00 AM EST tablet 60 TAKE ONE TABLET BY MOUTH TWICE A DAY TAKE ONE TABLET BY MOUTH TWICE A DAY SOLD: 10/13/2019 [facility] 600 mg 05/13/2019 12:00:00 AM EST tablet 60 TAKE ONE TABLET BY MOUTH TWICE A DAY TAKE ONE TABLET BY MOUTH TWICE A DAY SOLD: 08/14/2019 [facility] 100 mcg 05/13/2019 12:00:00 AM EST tablet 30 TAKE ONE TABLET BY MOUTH EVERY DAY TAKE ONE TABLET BY MOUTH EVERY DAY SOLD: 06/14/2019 [facility] 100 mcg 05/13/2019 12:00:00 AM EST tablet 30 TAKE ONE TABLET BY MOUTH EVERY DAY TAKE ONE TABLET BY MOUTH EVERY DAY SOLD: 08/14/2019 [facility] 40-25 mg 05/13/2019 12:00:00 AM EST tablet 30 TAKE ONE TABLET BY MOUTH EVERY DAY TAKE ONE TABLET BY MOUTH EVERY DAY SOLD: 06/14/2019 [facility] 10 mg 05/13/2019 12:00:00 AM EST tablet 30 TAKE ONE TABLET BY MOUTH EVERY DAY TAKE ONE TABLET BY MOUTH EVERY DAY SOLD: 10/13/2019 [facility] 40-25 mg 05/13/2019 12:00:00 AM EST tablet 30 TAKE ONE TABLET BY MOUTH EVERY DAY TAKE ONE TABLET BY MOUTH EVERY DAY SOLD: 10/13/2019 [facility] 100 mcg 05/13/2019 12:00:00 AM EST tablet 30 TAKE ONE TABLET BY MOUTH EVERY DAY TAKE ONE TABLET BY MOUTH EVERY DAY SOLD: 07/14/2019 [facility] 40-25 mg 05/13/2019 12:00:00 AM EST tablet 30 TAKE ONE TABLET BY MOUTH EVERY DAY TAKE ONE TABLET BY MOUTH EVERY DAY SOLD: 09/12/2019 [facility] Insurance Providers Payer name Policy type / Coverage type Policy ID Covered green party ID Covered green party's relationship to [place] Policy [place] Plan Information MEDICARE [id number] SP [id number] UMR [facility] [id number] SP [id number] Medicare P [id number] S [id number] UMR S [id number] UMR S [id number] S [id number] Medicare P [id number] S [id number] A UMR P [id number] S [id number] MEDICARE [id number] SP [id number] A [place] [id number] SP [id number] UMR S [id number] S [id number] UMR S [id number] S [id number] Medicare P [id number] S [id number] A [place] S [id number] S [id number] Medicare P [id number] S [id number] A [place] PPO O [id number] S [id number] MEDICARE C [id number] S [id number] A Medicare P [id number] S [id number] A Medicare P [id number] S [id number] A [employer] PPO S [id number] S [id number] [employer] S [id number] S [id number] Problems, Conditions, and Diagnoses Code Display Name Description Problem Type Effective Dates Data Source(s) 926685203 Arthropathy Arthropathy Problem 04/07/2020 04:25:03 PM EDT [place] ([facility]) [id number] Hypothyroidism Hypothyroidism Problem 04/07/2020 04:25: 03 PM EDT [place] ([facility]) V70.0 Encounter for general adult medical exam ination with abnormal findings Encounter for general adult medical examination with abnormal findings 11/23/2019 11:23:23 AM EDT [facility] [id number] Procedure by method Procedure by Method Problem 0 11/23/2019 12:00:00 AM EDT [facility] ([facility]) Results ID Date Data Source [id number] 08/02/2020 10:16:00 AM EST [place] Name Value Range Interpretation Code Description Data Leeanne rce(s) Supporting Document(s) SARS COVID ANTIGEN NEGATIVE [facility] This lab was ordered by JULISA byrd nd reported by [facility]. ID Date Data Source [id number] 11/23/2019 10:15:22 AM EDT [facility] Measurements & CalculationsHeight: 76.50 inches 194.31 cm 6 ft. 4.5 in.Weight: 157 pounds 71.36 kg Body Mass Index (BMI): 18.93BMI Interpretation: Healthy WeightBody Surface Area (BSA): 2.01Weight Management Education Done (Nutrition/Physical Activity)Vital SignsTemperature: 97.0FPulse Rate: 80 beats/minuteRespiratory Rate: 16 respirations/minuteBlood Pressure: 146/72 O2 Saturation: 98% Vital Signs performed by: Renetta De Souza MA, November 23, 2019 10:26 AMInitial Intake Information From: patientRoom #: 15Infectious Disease / Travel ScreeningRecent travel for you or any close contacts? NoHave you had any close contact with anyone diagnosed with or under investigation for COVID-19 (coronavirus)? NoFever? NoRespiratory symptoms: cough, cold, congestion, shortness of breath, difficulty breathing? NoLoss of smell? NoLoss of taste? NoSmoking, Tobacco, Vaping or Smoke Exposure StatusSmoke Status: never smokerTobacco Use: NoDo you vape? NoPassive Smoke Exposure: NoMenstrual HistoryAny possibility of ? NoHealthcare HistorySince your last office visit...Have you been admitted to the hospital? NoHave you been to an emergency room (ER) or urgent care clinic? No - ER- gallbladderHave you seen another healthcare provider? Yes - Dr Peterson( eye)Have you seen a dentist? NoIntake performed by: Renetta De Souza MA, November 23, 2019 10:24 AMRate Your HealthIn general, would you say your health is? GoodPain AssessmentAre you currently having any pain which... You would like your provider to address? No Affects your activity level? NoDepression Screening - PHQ-2Over the last two weeks, have you... Had little interest or pleasure in doing things? Not at all Been feeling down, depressed, or hopeless? Not at all PHQ-2 Score: 0Anxiety Screening - PREMA-2Over the last two weeks, have you been... Feeling nervous, anxious, or on edge? Not at all Unable to stop or control worrying? Not at all PREMA-2 Score: 0PRAPARE Sociodemographic Characteristics Race: White Ethnicity: Not or Preferred Language: EnglishScreening, Brief Intervention, & Referral to Treatment (SBIRT)Pre-Screening Questions How many times have you have 4 or more drinks in a day? 0How many times have you used an illegal drug or used a prescription medication for a non-medical reason? 0Performed by: Renetta De Souza MA, November 23, 2019 10:25 AMPatient History Medical History:HypothyroidismOsteoarthritisVaricose Veins/PhlebitisSurgical History:tonsillectomytubalgallbladder removalFamily History:Family History of ArthritisFH DiabetesFH Heart DiseaseFH HypertensionFH Thyroid ProblemsSocial/Personal History:Smoking History:Patient has never smoked. Chief Complaintannual, left leg pain History of Present Illness (HPI)Trying to stay active and eat a healthy diet.Feeling well except for eft calf cramping for the past 3-4 months. Crampy. No worse and no better with time. Relieved with rubbing the area. Only seems to happen when they are riding in their van. No worse with activity.Labs look good.HPI performed by: Victorino Madsen MD, November 23, 2019 10:38 AMTransitions of Care InboundProblem ReviewProblem List was reviewed and/or updated during this visit.Medication Reconciliation & ReviewMedication List was reviewed and/or updated during this visit, including review of any [id number] medications, herbal therapies, and/or supplements.Allergy ReviewAllergy List was reviewed and/or updated during this visit.Adult Preventive CareProvider Calculated and Reviewed all Clinical Protocols for paolo nt today. Labs/Meds/Other Counseling-Nutrition and Physical Activity:BMI Interpretation: Healthy Weight (11/23/2019) Counseling: Done (11/23/2019) Physical Activity: Done (11/23/2019)Review of Systems General: Denies dizziness, fatigue. Cardiovascular: Denies chest pain, palpitations. Respiratory: Denies shortness of breath. Gastrointestinal: Denies diarrhea, constipation. Genitourinary: Denies urinary incontinence, pain with urination, burning with urination, incomplete emptying. Physical ExamGeneral Appearance: well nourished, well hydrated, no acute distressEyes, External: conjunctivae and lids normal, EOMIRespiratory, Auscultation: clear to auscultation bilaterally; no rales, rhonchi, or wheezesRespiratory, Effort: no intercostal retractions or use of accessory musclesCardiovascular, Auscultation: S1, S2 audible; no murmur, rub, or gallop; RRRPeripheral Circulation: no clubbing, cyanosis, edema, or varicositiesGait & Station: normalSkin, Inspection: no rashes, lesions, or ulcerationsOrientation: oriented to time, place, and personMood & Affect: no depression, anxiety, or agitationJudgment & Insight: intactCare Management Plan Transitions of CareInboundRate Your HealthIn general, would you say your health is? GoodAssessment & Plan Problems:Added: Encounter for general adult medical examination with abnormal findings (ICD-V70.0) (MSM84-O89.01) Assessment: Instructions: Doing well.Up to date on preventive care.Continue current diet and exercise.Assessed:Hyperlipidemia (ICD-272.4) (ZAB24-N24.5) Assessment: Instructions: Doing well. Contiinue current plan.Patient Instructions/Care Plan: Encounter for general adult medical examination with abnormal findings: Doing well.Up to date on preventive care.Continue current diet and exercise.Hyperlipidemia: Doing well. Contiinue current plan. Plan developed in collaboration with patient and/or familyMedications:ACETAMINOPHEN 500 MG ORAL TABLETLEVOTHYROXINE 100 MCG TABLETOMEGA-3 FISH OIL 1200 MG ORAL CAP SULECENTRUM SILVER ORAL TABLETASPIR-81 81 MG ORAL TABLET DELAYED RELEASEGEMFIBROZIL 600 MG ORAL TABLETOLMESARTAN-HCTZ 40-25 MG TABAMLODIPINE BESYLATE 10 MG TABAllergies:ZETIA (EZETIMIBE) (Critical)LIPITOR (Moderate)* PROVACOL (Moderate)FOSAMAX (Moderate)Orders:COMP METABOLIC PANEL [CPT-60312] LIPID PANEL [CPT-36978] TSH [CPT-67806] Preventive, Est, (65+) [CPT-79961] Follow-Up Return to clinic: 6 months for dyslipidemia Name Value Range Interpretation Code Description Data Leeanne rce(s) Supporting Document(s) Procedure Vital Signs ID Date Data Source UNK Name Value Range Interpretation Code Description Data Source(s) Body weight 2080 [oz_av] 2080 [oz_av] LUZ MARINA ([facility]) Systolic blood pressure 129 mm[Hg] 129 mm[Hg] A [facility]) Body mass index (BMI) [Ratio] 15.6 kg/m2 15.6 k g/m2 LUZ MARINA ([facility]) Body height 76.5 [in_i] 76.5 [in_i] LUZ MARINA ([facility]) Diastolic blood pressure 68 mm[Hg] 68 mm[Hg] LUZ MARINA ([facility]) Body weight 2512 [oz_av] 2512 [oz_av] LUZ MARINA ([facility]) Systolic blood pressure 146 mm[Hg] 146 mm[Hg] A [facility] ([facility]) Body height 76.5 [in_i] 76.5 [in_i] LUZ MARINA ([facility]) Diastolic blood pressure 72 mm[Hg] 72 mm[Hg] LUZ MARINA ([facility])
--- OUTSIDE RECORDS SUMMARY | 2020-08-08 11:12 | CCD ---
Author Organization Unknown Address [address] [place] [address] Phone [phone] Care Team Providers Care Stenocaptioner Name Role Phone Victorino Madsen Unavailable Unavailable Allergies Code Code System Name Reaction Severity Status Onset 282697 RxNorm Fosamax Active 08/06/2012 405206 RxNorm Lipitor Active 08/06/2012 461120 RxNorm Ezetimibe Active 11/04/2014 Notes: PROVACOL - Reaction: muscle pain and weakness Medications Name Status Start Date Stop Date amlodipine 10 mg tablet TAKE ONE TABLET BY MOUTH EVERY DAY Active Not available Fluad Quad (65yr up)(PF) 60 mcg (15 mcg x 4)/0.5mL IM syringe INJECT IN THE LEFT ARM Active Not available Fluzone High-Dose (PF) 180 mcg/0 .5 mL intramuscular syringe INJECT DIRECTED Active Not available gemfibrozil 600 mg tablet TAKE ONE TABLET BY MOUTH TWICE A DAY Active No t available levothyroxine 100 mcg tablet TAKE ONE TABLET BY MOUTH EVERY DAY Active Not available olmesartan 40 mg-hydrochlorothiazide 25 mg tablet TAKE ONE TABLET BY MOUTH EVERY DAY Active Not available Problems Name Status Onset Date Source Metabolic Syndrome X Active 08/06/2012 History Hypertensive Disorder Active 08/06/2012 History Osteoporosis Active 08/06/2012 History Pure Hypercholesterolemia Active 08/15/2012 Histor y Respiratory Crackles Active 02/03/2013 History 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 Past Encounters 05/24/2020 Hyperlipidemia Victorino Madsen MD: [address] [place] [address], Ph. Social History Tobacco Smoking Status Never Smoker Vaccine List Vaccine Type influenza, seasonal, injectable 04/03/2015 05/22/20170.5 mL influenza, unspecified formulation 05/07/2018 05/26/2019 Plan of Care Reminders Provider Appointments None recorded. Lab None recorded. Referral None recorded. Procedures None recorded. Surgeries None recorded. Imaging None recorded. Vitals 05/24/2020 01:00PM ESTABLISHED [id number] Height Weight BMI Blood Pressure 76.5 in 130 lbs 15.6 kg/m2 129/68 mm[Hg] 11/23/2019 Height Weight Blood Pressure 76.5 in 157 lbs 146/72 mm[Hg] 05/26/2019 Height Weight Blood Pressure 76.5 in 148 lbs 4 oz 128/67 mm[Hg] 04/13/2019 Height Weight Blood Pressure 76.5 in 154 lbs 8 oz 138/74 mm[Hg] 12/31/2018 Height Weight Blood Pressure 76.5 in 165 lbs 132/75 mm[Hg] 11/21/2018 Height Weight Blood Pressure 76.5 in 169 lbs 2.08 oz 147/71 mm[Hg]
--- NOTE | 2020-08-08 11:42 | REP ---
INDICATION: trauma. COMPARISON: None. TECHNIQUE: Single AP view of the pelvis FINDINGS: Age-related osteopenia and degenerative changes are appreciated. No obvious acute fracture or dislocation. No foreign body. IMPRESSION: Osteopenia and degenerative changes. No acute fracture or dislocation. <Electronically signed by Pedro Galarza > 08/08/20 [id number]
--- NOTE | 2020-08-08 11:43 | REP ---
INDICATION: trauma. COMPARISON: Comparison radiograph August 02, 2020. TECHNIQUE: Two views.. FINDINGS: The right hemidiaphragm is somewhat elevated. Heart is mildly enlarged unchanged. Pleural angles are sharp. Pulmonary vasculature is not increased. There are degenerative spondylosis changes in the thoracic spine. There is no evidence of pneumothorax or hydrothorax. No fracture is seen. There are surgical clips in right upper quadrant of the abdomen. Monitoring electrodes are noted. IMPRESSION: No traumatic abnormality noted. Mild cardiomegaly. Otherwise no acute disease.. <Electronically signed by Norberto Jaramillo > 08/08/20 [id number]
[2020-08-08 11:55] LABS: BASO # 0.1 10^3/uL (0.0-0.2); BASO % 0.5 % (0.0-1.0); EOS # 0.1 10^3/uL (0.0-0.5); HEMATOCRIT 36.5 % (36.0-47.0); HEMOGLOBIN 11.5 g/dl (12.0-15.5); LYMPH # 1.1 10^3/uL (1.5-5.0); LYMPH % 11.6 % (24.0-44.0); MEAN CORPUSCULAR HEMOGLOBIN 28.8 pg (27.0-33.0); MEAN CORPUSCULAR HGB CONC 31.5 g/dl (32.0-36.5); MEAN CORPUSCULAR VOLUME 91.5 fl (80.0-96.0); MONO # 0.7 10^3/uL (0.0-0.8); MONO % 7.3 % (2.0-8.0); NEUTROPHILS # 7.5 10^3/uL (1.5-8.5); NEUTROPHILS % 79.2 % (36.0-66.0); PLATELET COUNT, AUTOMATED 432 10^3/uL (150-450); RED BLOOD COUNT 3.99 10^6/uL (4.00-5.40); WHITE BLOOD COUNT 9.5 10^3/uL (4.0-10.0)
[2020-08-08 12:11] LABS: INR 1.13; PROTHROMBIN TIME 14.8 SECONDS (12.5-14.3)
[2020-08-08 12:12] LABS: PARTIAL THROMBOPLASTIN TIME 31.5 SECONDS (24.2-38.5)
[2020-08-08 12:25] LABS: ALBUMIN 3.7 GM/DL (3.2-5.2); ALT/SGPT 13 U/L (12-78); BILIRUBIN,DIRECT 0.4 MG/DL (0.0-0.2); BILIRUBIN,TOTAL 0.6 MG/DL (0.2-1.0); BLOOD UREA NITROGEN 30 MG/DL (7-18); CALCIUM LEVEL 10.2 MG/DL (8.8-10.2); CARBON DIOXIDE LEVEL 24 MEQ/L (21-32); CHLORIDE LEVEL 107 MEQ/L (98-107); CPK CREATINE PHOSPHOKINASE 82 U/L (26-192); FREE T4 1.33 NG/DL (0.76-1.46); GLOMERULAR FILTRATION RATE > 60.0 (>32); GLUCOSE, FASTING 89 MG/DL (70-100); LIPASE 247 U/L (73-393); MB/CK RELATIVE INDEX 3.66 (< OR =4); POTASSIUM SERUM 4.1 MEQ/L (3.5-5.1); SODIUM LEVEL 139 MEQ/L (136-145); TOTAL PROTEIN 7.2 GM/DL (6.4-8.2); TROPONIN I < 0.02 NG/ML (< 0.10)
[2020-08-08] MEDS: GASTROGRAFIN SOLUTION 30ML PO SCH ×2 (13:27→14:10)
[2020-08-08] MEDS ORDERED: ISOVUE-370 76% 100ML VIAL As Ordered ONE (14:47)
--- NOTE | 2020-08-08 15:50 | REP ---
INDICATION: RUQ pain. COMPARISON: Comparison abdominal CT study December 24, 2018.. TECHNIQUE: Helical scanning is acquired following the intravenous injection of 100 mL of Isovue 370. 3 mm axial images re-formatted. Coronal and sagittal MPR images are generated. Oral contrast was also administered. FINDINGS: Preliminary digital clip wrapper radiograph demonstrates a moderate levoconvex lumbar curvature. There is moderate colonic stool. The lung bases show minimal fibrotic changes but are otherwise clear. No pleural effusion or upper abdominal ascites is seen. There are granulomatous calcifications scattered about the spleen. Mild diffuse fatty infiltration of the liver is seen. No focal liver lesion is observed. The gallbladder surgically absent. Common bile duct is at the upper range of normal post cholecystectomy, 10.5 mm. There is a stable 2.2 cm right adrenal nodule. Left adrenal gland is unremarkable. No abnormality is noted in the pancreas. Vascular calcification is noted in the renal arteries. The kidneys enhance symmetrically. No retroperitoneal mass or adenopathy is seen. The distal abdominal aorta is ectatic, 2.5 cm in AP dimension. The appendix is fluid-filled, mildly distended at the bottom edge of the cecum. It measures 8 mm in diameter. There is no [place]ow appendiceal inflammatory change or edema however. No abscess or free air is seen. Question mural thickening in the cecal tip. It is difficult to exclude acute appendicitis. There is advanced sigmoid colon diverticulosis without CT evidence of diverticulitis. The uterus is tipped to the left but is unremarkable. No ovarian mass or adenopathy is observed. Small and large bowel loops are unremarkable otherwise. There is some asymmetry and induration in the perineum involving the left labia. An indurated area is seen at the bottom edge of the field of view involving the proximal posteromedial left thigh just below the ischium. Question cellulitis or other lesion. IMPRESSION: 1. Advanced sigmoid colon diverticulosis without CT evidence diverticulitis. 2. Post cholecystectomy with borderline CBD, 10.5 mm. 3. Fluid filled mildly dilated appendix without periappendiceal inflammatory change. Equivocal findings for appendicitis. 4. Induration of the perineum in the region of the left labia and medial to the left ischium. This extends to the bottom of the imaging field of view and needs correlation clinically with physical findings in the proximal thigh. <Electronically signed by Norberto Jaramillo > 08/08/20 [id number]
[2020-08-08] MEDS ORDERED: MORPHINE 4 MG/ML 1ML VIAL/SYRINGE (J2270) IV ONE (16:15)
[2020-08-08] MEDS ORDERED: metroNIDAZOLE (FLAGYL) 500MG TABLET PO ONE (17:00)
[2020-08-08] MEDS ORDERED: CIPROFLOXACIN 500MG TABLET PO ONE (17:00)
[2020-08-08] MEDS ORDERED: PERC5TAB12 PO (17:01)
[2020-08-08] MEDS ORDERED: CIPR-249 PO (17:02)
[2020-08-08] MEDS ORDERED: FLAG500T PO (17:03)
[2020-08-08 17:27] VITALS: BP 201/105
--- NOTE | 2020-08-09 07:03 | ED PDOC ---
Post-Departure Follow-Up radiology report faxed to Sarahi Graham MD Aug 09, 2020 07:03
--- NOTE | 2020-08-09 07:29 | ECGEPIP ---
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
== END 2020-08-08 17:40 | disposition home or self-care (01) ==
LOC: EDBD 10:42 → M ED 10:42
DX: R10.9 Unspecified abdominal pain (principal); I10 Essential (primary) hypertension; E78.9 Disorder of lipoprotein metabolism, unspecified; E07.9 Disorder of thyroid, unspecified; Z79.899 Other long term (current) drug therapy; Z79.890 Hormone replacement therapy; Z79.82 Long term (current) use of aspirin; Z88.8 Allergy status to other drugs, medicaments and biological substances
CPT/HCPCS: 71046; 72190; 74177; 80048; 80076; 82550; 82553; 83690; 84439; 84443; 84484; 85025; 85610; 85730; 93005; 93041; 94760; 96374; 99285; J2270; Q9963; Q9967

== ENCOUNTER 2020-08-22 15:03 | Emergency (ER) | payer MEDICARE, OTHER ==
[~2020-08-22] VITALS: Ht 162.6 cm; Wt 75.0 kg
[~2020-08-22 15:03] MED LIST changes: +CIPR-249 PO; +FLAG500T PO; +PERC5TAB12 PO
[2020-08-22 16:29] LABS: BASO # 0.1 10^3/uL (0.0-0.2); BASO % 0.8 % (0.0-1.0); EOS # 0.1 10^3/uL (0.0-0.5); HEMATOCRIT 38.6 % (36.0-47.0); HEMOGLOBIN 12.2 g/dl (12.0-15.5); LYMPH # 1.6 10^3/uL (1.5-5.0); LYMPH % 20.5 % (24.0-44.0); MEAN CORPUSCULAR HEMOGLOBIN 29.1 pg (27.0-33.0); MEAN CORPUSCULAR HGB CONC 31.6 g/dl (32.0-36.5); MEAN CORPUSCULAR VOLUME 92.1 fl (80.0-96.0); MONO # 0.6 10^3/uL (0.0-0.8); MONO % 8.2 % (2.0-8.0); NEUTROPHILS # 5.4 10^3/uL (1.5-8.5); NEUTROPHILS % 69.1 % (36.0-66.0); PLATELET COUNT, AUTOMATED 499 10^3/uL (150-450); RED BLOOD COUNT 4.19 10^6/uL (4.00-5.40); WHITE BLOOD COUNT 7.8 10^3/uL (4.0-10.0)
[2020-08-22] MEDS ORDERED: MORPHINE 4 MG/ML 1ML VIAL/SYRINGE (J2270) IV ONE (16:45)
[2020-08-22] MEDS ORDERED: NS 500 ML IV ONE (16:50)
[2020-08-22 17:01] LABS: ALBUMIN 3.9 GM/DL (3.2-5.2); BILIRUBIN,DIRECT 0.2 MG/DL (0.0-0.2); BILIRUBIN,TOTAL 0.4 MG/DL (0.2-1.0); CALCIUM LEVEL 9.9 MG/DL (8.8-10.2); CREATININE FOR GFR 0.99 MG/DL (0.55-1.30); GLOMERULAR FILTRATION RATE 56.6 (>32); POTASSIUM SERUM 3.6 MEQ/L (3.5-5.1); TOTAL PROTEIN 7.7 GM/DL (6.4-8.2)
[2020-08-22 17:04] VITALS: BP 120/60
[2020-08-22] MEDS ORDERED: ISOVUE-370 76% 100ML VIAL As Ordered ONE (18:08)
--- NOTE | 2020-08-22 19:01 | REPVR ---
PROCEDURE INFORMATION: Exam: CT Abdomen And Pelvis With Contrast Exam date and time: 08/22/2020 5:57 PM Age: 85 years old Clinical indication: Pain and abnormal findings; Abnormal lab test; Elevated lipase; Abdominal pain; Additional info: Elevated lipase ruq pain TECHNIQUE: Imaging protocol: Computed tomography of the abdomen and pelvis with contrast. Radiation optimization: All CT scans at this facility use at least one of these dose optimization techniques: automated exposure control; mA and/or kV adjustment per patient size (includes targeted exams where dose is matched to clinical indication); or iterative reconstruction. Contrast material: ISOVUE 370; Contrast volume: 100 ml; Contrast route: INTRAVENOUS (IV); COMPARISON: CT ABD/PEL W/IV ORAL CONTRAS 08/08/2020 3:11 PM FINDINGS: Lungs: Bibasilar parenchymal atelectasis/scarring. Small Bochdalek's hernia left lower lobe. Liver: Normal. No mass. Gallbladder and bile ducts: There has been a cholecystectomy. Pancreas: Visible pancreatic duct measures up to 4.5 mm in the pancreatic neck. No obstructing mass or calculus demonstrated. Further evaluation with MRCP could be obtained if clinically desired. Spleen: The spleen demonstrates punctate calcifications, consistent with remote granulomatous organism exposure. Adrenal glands: There is bilateral adrenal hyperplasia. There is a focal hypodense mass in the right adrenal gland measuring 1.5 x 2.2 cm., consistent in appearance and density with a benign adrenal adenoma. Kidneys and ureters: 4 mm simple cyst left kidney. Stomach and bowel: Moderate diverticulosis is present in the distal colon. No diverticulitis. Appendix: No evidence of appendicitis. Intraperitoneal space: Unremarkable. No free air. No significant fluid collection. Vasculature: Ectatic atherosclerotic infrarenal abdominal aorta measures 2.5 cm maximally. Lymph nodes: Unremarkable. No enlarged lymph nodes. Urinary bladder: Unremarkable as visualized. Reproductive: Unremarkable as visualized. Bones/joints: The spine demonstrates moderate degenerative changes. Diffuse decrease in bone mineralization consistent with osteoporosis or osteopenia. Levoscoliosis. Fusion of L1-L2 to L4-L5 disc spaces. Moderate central spinal stenosis L1-L2, L2-L3, severe central spinal stenosis L3-L4 and L4-L5. Marked degenerative changes at L5-S1 and involving the facet joints as well. Soft tissues: Previously demonstrated inflammatory changes in the left labia in the ischial region have resolved. Mild anasarca. IMPRESSION: 1. There has been a cholecystectomy. 2. There is bilateral adrenal hyperplasia. 3. There is a focal hypodense mass in the right adrenal gland measuring 1.5 x 2.2 cm., consistent in appearance and density with a benign adrenal adenoma. 4. Visible pancreatic duct measures up to 4.5 mm in the pancreatic neck. No obstructing mass or calculus demonstrated. Further evaluation with MRCP could be obtained if clinically desired. 5. Moderate diverticulosis is present in the distal colon. No diverticulitis. COMMENTS: Consistent with the [employer]'s Incidental Findings Committee white paper (J Am Garett Radiol 2018): Any incidental renal lesion less than 1 cm or classified as too small to characterize, or any incidental cystic renal lesion characterized as simple-appearing, is likely benign. No follow-up imaging is recommended for these lesions per consensus recommendations based on imaging criteria. Electronically signed by: Malick Muir On 08/22/2020 19:02:17 PM
[2020-08-22] MEDS ORDERED: HYDR-3713 PO (20:12)
[2020-08-22] MEDS ORDERED: NORCO, ANEXSIA 5/325MG TABLET (HYDROcodone/ACETAMINOPHEN) PO ONE (21:10)
== END 2020-08-22 21:18 | disposition home or self-care (01) ==
LOC: M ED 15:03
DX: R10.11 Right upper quadrant pain (principal); R79.89 Other specified abnormal findings of blood chemistry; I10 Essential (primary) hypertension; E78.5 Hyperlipidemia, unspecified; E03.9 Hypothyroidism, unspecified; Z79.899 Other long term (current) drug therapy; Z79.82 Long term (current) use of aspirin; Z79.890 Hormone replacement therapy; Z88.8 Allergy status to other drugs, medicaments and biological substances
CPT/HCPCS: 74177; 80048; 80076; 81001; 83690; 85025; 96361; 96374; 99284; J2270; Q9967

== ENCOUNTER → 2020-11-18 | Outpatient (CLI) | payer MEDICARE, OTHER ==
[~2020-11-18] MED LIST changes: +HYDR-3713 PO; +PROHANCE 279.3MG/ML 15ML VIAL As Ordered ONE
--- NOTE | 2020-11-21 09:23 | REP ---
INDICATION: ABD PAIN. COMPARISON: Correlation with CT dated 08/22/2020 TECHNIQUE: Axial pre and post contrast T1 and T2 weighted sequences through limited portions of the abdomen including in and out of phase sequences along with MRCP FINDINGS: Visualized portions of the liver and spleen appear normal. 2.5 cm right adrenal mass confirmed as benign adenoma. Patient is noted to be status post cholecystectomy and there is normal compensatory intrahepatic and extrahepatic biliary ductal dilatation without evidence for obstructing lesion or choledocholithiasis. Pancreas is normal in appearance. The pancreatic duct is mildly prominent but age-appropriate and without evidence for pancreatic or pancreatic ductal pathology. The bilateral kidneys are essentially normal. IMPRESSION: 1. Benign right adrenal adenoma requiring no further evaluation. 2. Relatively normal MRCP examination demonstrating post cholecystectomy changes without significant pathology. <Electronically signed by Pedro Galarza > 11/21/20 [id number]
== END ==
LOC: M RAD 16:09
PROVIDERS: ATTEND Internal Medicine Gastroenterology
DX: R10.10 Upper abdominal pain, unspecified (principal)
CPT/HCPCS: 74181; 74183; A9576

== ENCOUNTER → 2022-05-31 | Outpatient (REF) | payer MEDICARE, OTHER ==
[~2022-05-31] MED LIST changes: -PROHANCE 279.3MG/ML 15ML VIAL As Ordered ONE
[2022-05-31 13:37] LABS: ALBUMIN 3.8 G/DL (3.2-5.2); ALKALINE PHOSPHATASE 80 U/L (46-116); ALT/SGPT 11 U/L (7.0-40); AST/SGOT 16 U/L (<34); BILIRUBIN,TOTAL 0.4 MG/DL (0.3-1.2); BLOOD UREA NITROGEN 22 MG/DL (9-23); CALCIUM LEVEL 9.9 MG/DL (8.3-10.6); CARBON DIOXIDE LEVEL 25 MMOL/L (20-31); CHLORIDE LEVEL 109 MMOL/L (98-107); CHOLESTEROL LEVEL 132 MG/DL (<200); CHOLESTEROL RISK RATIO 2.53 (<5); CREATININE FOR GFR 0.63 MG/DL (0.55-1.30); GLOMERULAR FILTRATION RATE > 60.0 (>32); GLUCOSE, FASTING 84 MG/DL (74-106); HDL CHOLESTEROL 52.1 MG/DL (>40); LDL CHOLESTEROL 71.5 MG/DL (<100); NON-HDL-C 80 MG/DL; POTASSIUM SERUM 4.6 MMOL/L (3.5-5.1); SODIUM LEVEL 141 MMOL/L (136-145); TRIGLYCERIDES LEVEL 42 MG/DL (<150)
[2022-05-31 13:38] LABS: THYROID STIMULATING HORMONE 4.214 uIU/ML (0.55-4.78)
== END ==
LOC: M LAB REF 12:35
PROVIDERS: ATTEND Family Medicine Addiction Medicine
DX: G25.81 Restless legs syndrome (principal); Z79.899 Other long term (current) drug therapy

== ENCOUNTER → 2023-02-14 | Outpatient (REF) | payer MEDICARE, OTHER ==
[2023-02-14 17:21] LABS: ALBUMIN 3.7 G/DL (3.2-5.2); ALKALINE PHOSPHATASE 79 U/L (46-116); ALT/SGPT 10 U/L (7.0-40); AST/SGOT 12 U/L (<34); BILIRUBIN,TOTAL 0.6 MG/DL (0.3-1.2); BLOOD UREA NITROGEN 20 MG/DL (9-23); CALCIUM LEVEL 9.9 MG/DL (8.3-10.6); CARBON DIOXIDE LEVEL 24 MMOL/L (20-31); CHLORIDE LEVEL 106 MMOL/L (98-107); CHOLESTEROL LEVEL 140 MG/DL (<200); CHOLESTEROL RISK RATIO 2.85 (<5); CREATININE FOR GFR 0.63 MG/DL (0.55-1.30); GLOMERULAR FILTRATION RATE > 60.0 (>32); GLUCOSE, FASTING 82 MG/DL (74-106); LDL CHOLESTEROL 78.6 MG/DL (<100); POTASSIUM SERUM 4.6 MMOL/L (3.5-5.1); SODIUM LEVEL 138 MMOL/L (136-145); THYROID STIMULATING HORMONE 3.119 uIU/ML (0.55-4.78); TOTAL PROTEIN 7.2 G/DL (5.7-8.2); TRIGLYCERIDES LEVEL 62 MG/DL (<150)
== END ==
LOC: M LAB REF 16:20
PROVIDERS: ATTEND Family Medicine Addiction Medicine
DX: E88.81 Metabolic syndrome and other insulin resistance (principal); Z79.899 Other long term (current) drug therapy

== ENCOUNTER → 2023-11-29 | Outpatient (REF) | payer MEDICARE, OTHER ==
[~2023-11-29] MED LIST changes: -OLME1TAB53 PO; +OLME1TAB54 PO
[2023-11-29 19:50] LABS: ALBUMIN 3.7 G/DL (3.2-5.2); ALKALINE PHOSPHATASE 92 U/L (46-116); ALT/SGPT 10 U/L (7.0-40); AST/SGOT 12 U/L (<34); BILIRUBIN,TOTAL 0.3 MG/DL (0.3-1.2); BLOOD UREA NITROGEN 24 MG/DL (9-23); CALCIUM LEVEL 10.3 MG/DL (8.3-10.6); CARBON DIOXIDE LEVEL 24 MMOL/L (20-31); CHLORIDE LEVEL 108 MMOL/L (98-107); CHOLESTEROL LEVEL 152 MG/DL (<200); CHOLESTEROL RISK RATIO 3.02 (<5); CREATININE FOR GFR 0.68 MG/DL (0.55-1.30); GLOMERULAR FILTRATION RATE > 60.0 (>32); GLUCOSE, FASTING 90 MG/DL (74-106); HDL CHOLESTEROL 50.3 MG/DL (>40); LDL CHOLESTEROL 92.3 MG/DL (<100); NON-HDL-C 101.7 MG/DL; SODIUM LEVEL 140 MMOL/L (136-145); TOTAL PROTEIN 7.2 G/DL (5.7-8.2); TRIGLYCERIDES LEVEL 47 MG/DL (<150)
[2023-11-29 19:52] LABS: THYROID STIMULATING HORMONE 5.519 uIU/ML (0.55-4.78)
[2023-11-29 19:56] LABS: HEMATOCRIT 38.3 % (36.0-47.0); HEMOGLOBIN 12.2 g/dl (12.0-15.5); MEAN CORPUSCULAR HEMOGLOBIN 29.8 pg (27.0-33.0); MEAN CORPUSCULAR HGB CONC 31.9 g/dl (32.0-36.5); MEAN CORPUSCULAR VOLUME 93.4 fl (80.0-96.0); PLATELET COUNT, AUTOMATED 416 10^3/uL (150-450); WHITE BLOOD COUNT 6.7 10^3/uL (4.0-10.0)
== END ==
LOC: M LAB REF 16:33
PROVIDERS: ATTEND Family Medicine Addiction Medicine
DX: E78.00 Pure hypercholesterolemia, unspecified (principal)

== ENCOUNTER → 2024-03-24 | Outpatient (REF) | payer MEDICARE, OTHER | LOC: M LAB REF 17:27 | PROVIDERS: ATTEND Family Medicine Addiction Medicine | DX: E03.9 Hypothyroidism, unspecified (principal) ==